=== PATIENT | male | born 1985 | race Caucasian/White ===

== ENCOUNTER 2017-10-13 06:50 | Emergency (ER) | payer SELFPAY ==
[~2017-10-13] VITALS: Ht 167.6 cm; Wt 66.0 kg
[~2017-10-13 06:50] MED LIST: DICL50 PO; Z.0.NO CURRENT MEDS
[2017-10-13 06:54] VITALS: BP 118/82; PULSE 66; RESP 17; TEMP 98.5; O2SAT 99
[2017-10-13] MEDS ORDERED: DOXY100C PO (07:21)
[2017-10-13] MEDS ORDERED: TETANUS/DIPHTHERIA TOXOID ADULT 0.5 ML VIAL IM ONE (07:30)
--- NOTE | 2017-10-13 07:30 | PD ---
HPI Chief Complaint: Bite or Sting Time Seen by Provider: 07:10 Travel History International Travel<30 days: No Contact w/Intl Traveler<30days: No Traveled to known affect area: No History of Present Illness HPI 32-year-old male presents to the emergency room for evaluation of right bite to the left outer upper arm that occurred just prior to arrival. Patient states a rat was crawling in his in bed. She screamed which startled the right and caused it to bite him. He washed the wound with hydrogen peroxide. Patient was able to catch and kill the rat. Reports mild pain. States pain radiates down his arm. Unknown last tetanus. No chronic medical conditions or daily medications. PFSH Social History Alcohol Use: No Tobacco Use: No Substance Use: No Allergies-Medications (Allergen,Severity, Reaction): Coded Allergies: penicillin G (Unverified Allergy, Severe, HIVES/FEVER, 10/13/17) Reported Meds & Prescriptions Reported Meds & Active Scripts Active Doxycycline Hyclate 100 Mg Cap 100 Mg PO BID Voltaren (Diclofenac Sodium) 50 Mg Tabec 50 Mg PO TIDPRN FOR PAIN Reported No Current Meds (Miscellaneous Medication) [facility] [place] Review of Systems Except as stated in HPI: all other systems reviewed are Neg Physical Exam Narrative GENERAL: Well-nourished, well-developed male in no acute distress. Afebrile. Ambulatory. SKIN: Focused skin assessment warm/dry. There is a very superficial 2 mm scratch to the left upper outer arm. No induration or fluctuance. Nonbleeding. No lymphangitis. HEAD: Normocephalic. EYES: No scleral icterus. No injection or drainage. NECK: Supple, trachea midline. No JVD or lymphadenopathy. CARDIOVASCULAR: Regular rate and rhythm without murmurs, gallops, or rubs. RESPIRATORY: Breath sounds equal bilaterally. No accessory muscle use. MUSCULOSKELETAL: No cyanosis, or edema. 2+ radial pulse. Radial, ulnar, median nerves intact. Full range of motion of the left upper extremity. Data Data Last Documented VS Vital Signs Date Time Temp Pulse Resp B/P (MAP) Pulse Ox O2 Delivery O2 Flow Rate FiO2 10/13/17 06:54 98.5 66 17 118/82 (94) 99 Orders Orders Tetanus/Diphtheria Tox Adult (Tetanus/Di (10/13/17 07:30) MDM Medical Decision Making Medical Screen Exam Complete: Yes Emergency Medical Condition: Yes Medical Record Reviewed: Yes Differential Diagnosis rat bite, wound infection, rabies prophylaxis, tetanus prophylaxis Narrative Course 32-year-old male presents to the emergency room for evaluation of right bite to the left upper outer arm that occurred just prior to arrival. Physical exam reveals a very superficial 2 mm wound that only breaks through the epidermis. There is no bleeding. No surrounding lymphangitis or erythema. Not indurated. Nontender. Tetanus was updated in the emergency room. Rabies prophylaxis not indicated. Wound was thoroughly cleansed. Patient discharged with prescription for doxycycline and told to follow-up with a primary care physician or return for worsening symptoms. He understands and agrees to plan. Diagnosis Primary Impression: Rat bite Qualified Codes: W53.11XA - Bitten by rat, initial encounter Referrals: Primary Care Physician Additional Instructions: Doxycycline as directed, until gone. This medication will make you burn in the sun. Follow-up with the primary care physician. Return for worsening symptoms. Med/Other Pt SpecificInfo: Prescription(s) given Scripts Doxycycline Hyclate (Doxycycline Hyclate) 100 Mg Cap 100 MG PO BID for Infection, #20 CAP 0 Refills Prov: Brian Torres MD 10/13/17 Disposition: 01 DISCHARGE HOME Condition: Stable Ca Minor Oct 13, 2017 07:30
== END 2017-10-13 08:01 | disposition home or self-care (01) ==
LOC: NEPD 06:50
DX: S41.152A Open bite of left upper arm, initial encounter (principal); W53.11XA Bitten by rat, initial encounter; Z23 Encounter for immunization
CPT/HCPCS: 90471; 90714